=== PATIENT | male | born 1950 | race Caucasian/White ===

== ENCOUNTER → 2017-12-04 13:42 | Outpatient (CLI) | payer MEDICARE, MEDICAID, SELFPAY ==
[2017-12-04 15:06] LABS: Amphetamine Urine VISTA NEGATIVE (<1000 ng/mL); Barbiturate Urine VISTA NEGATIVE (< 200 ng/mL); Benzodiazepine Urine VISTA NEGATIVE (< 200 ng/mL); Cocaine Urine VISTA NEGATIVE (< 300 ng/mL); Ecstacy Urine VISTA NEGATIVE (< 500 ng/mL); Methadone Urine VISTA NEGATIVE (< 300 ng/mL); PCP Urine VISTA NEGATIVE (< 25 ng/mL); THC Urine VISTA NEGATIVE (< 50 ng/mL); Vista UDS pH Range 5
== END ==
PROVIDERS: Family Provider Family Medicine; PCP Family Medicine; Visit Provider Anesthesiology Pain Medicine
DX: F11.20 Opioid dependence, uncomplicated (principal)
CPT/HCPCS: 80307

== ENCOUNTER → 2018-03-07 09:13 | Outpatient (CLI) | payer MEDICARE, MEDICAID, SELFPAY ==
--- NOTE | 2018-03-07 09:25 | MRI_ITS ---
STUDY: MRI CERVICAL SPINE WITHOUT CONTRAST REASON FOR EXAM: Male, 67 years old. Neck pain TECHNIQUE: Standardized fat and water weighted pulse sequences were obtained in the sagittal and axial planes. COMPARISON: None FINDINGS: There is no tonsillar ectopia. There is a normal cervicomedullary junction. The cervical spinal cord is of normal morphology and signal intensity with no myelopathy or myelomalacia. A mild retrolisthesis of C3 over C4. There is also evidence of anterior discectomy and fusion at C5-C6 and C6-7. The procedure is secured by a plate and screws. There are no acute fractures or dislocations. C2-3: Normal endplates. Normal disc height, signal and morphology. Normal central canal and intervertebral neural foramina. C3-4: A small uncinate spur narrows the right intervertebral foramen. There is no focal disc protrusion or extrusion.. C4-5: Normal endplates. Normal disc height, signal and morphology. Normal central canal and intervertebral neural foramina. C5-6: Fusion of the vertebral bodies. No focal disc protrusion or extrusion. The plate and screws are within normal limits C6-7: Suspicion of vertebral bodies. No focal disc protrusion or extrusion. The plate and screws are within normal limits.. C7-T1: Normal endplates. Normal disc height, signal and morphology. Normal central canal and intervertebral neural foramina. . MRI/Spine Cervical (Routine) IMPRESSION: Anterior discectomy and fusion at C5-C6 and C6-C7. There are no complications related to the preceding. A small uncinate spur on the C3-C4 level minimally narrows the right intervertebral foramen. Electronically Signed: Kvng Mckenzie MD at 7:59 EDT Tel , Service support ,
== END ==
PROVIDERS: Family Provider Family Medicine; PCP Family Medicine; Referring Provider Anesthesiology Pain Medicine; Visit Provider Anesthesiology Pain Medicine
DX: M54.2 Cervicalgia (principal); M79.602 Pain in left arm
CPT/HCPCS: 72141